=== PATIENT | male | born 1990 | race Caucasian/White ===

== ENCOUNTER 2018-11-26 08:45 | Day surgery (SDC) | payer OTHER ==
[~2018-11-26] VITALS: Ht 180.3 cm; Wt 74.1 kg
[~2018-11-26 08:45] MED LIST: 0.9% SODIUM CHLORIDE 10 ML SYRINGE IVP PRN; METO25 PO; METOPROLOL TARTRATE 50 MG TABLET PO PRN
[2018-11-26] MEDS ORDERED: IOVERSOL 350 MG/ML 150 ML VIAL ONE (09:22)
[2018-11-26] MEDS ORDERED: SODIUM CHLORIDE 0.9% 100 ML ONE (09:22)
[2018-11-26 09:40] LABS: ANION GAP 6 mmol/L (8-16); CARBON DIOXIDE 30 mmol/L (22-29); CHLORIDE 103 mmol/L (98-107); CREATININE 0.95 mg/dL (0.60-1.30); GLOMERULAR FILTR. RATE CALC > 60 mL/min (>60); GLUCOSE,RANDOM 95 mg/dL (70-110); POTASSIUM 3.9 mmol/L (3.5-5.1); SODIUM SERUM 139 mmol/L (136-145); UREA NITROGEN, BLOOD 11 mg/dL (7-18)
[2018-11-26] MEDS ORDERED: METOPROLOL TARTRATE 5 MG/5 ML VIAL ONE (09:45)
[2018-11-26] MEDS ORDERED: NITROGLYCERIN 400 MCG/SUBLINGUAL SPRAY 4.9 GM BOTTLE SL ONE (09:45)
== END 2018-11-26 10:30 | disposition home or self-care (01) ==
LOC: SURGERY 08:45 → EDSTATUS 10:30 → SURGERY 10:30
PROVIDERS: ATTEND Internal Medicine Cardiovascular Disease
DX: R07.9 Chest pain, unspecified (principal); F41.9 Anxiety disorder, unspecified; Z98.890 Other specified postprocedural states
CPT/HCPCS: 36415; 75574; 80048; 93005; J7050; Q9967; J3490